=== PATIENT | female | born 1945 | race Caucasian/White ===

== ENCOUNTER 2016-11-29 09:46 | Day surgery (SDC) | payer MEDICARE ==
[~2016-11-29 09:46] MED LIST: ARMO90TA PO; CHOL50006; METF500T PO; OXYC1CAP PO
[2016-11-29] MEDS ORDERED: ASPI81CH CHEW (10:49)
[2016-11-29] MEDS ORDERED: CHOL20005 PO (10:49)
[2016-11-29] MEDS ORDERED: MAGN250T11 PO (10:49)
[2016-11-29] MEDS ORDERED: potassium PO (10:49)
[2016-11-29] MEDS ORDERED: PIOG15TA5 PO (10:49)
[2016-11-29] MEDS ORDERED: VITACAP7 PO (10:49)
[2016-11-29] MEDS ORDERED: PLAV75TA29 PO (10:49)
--- NOTE | 2016-11-29 13:46 | ECHRPT ---
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 Components FINDINGS LEFT VENTRICLE Normal left ventricular size and wall thickness. The left ventricular systolic function is normal wi th an estimated ejection fraction in the range of 60-65%. Left ventricular diastolic function parameters a re normal. RIGHT VENTRICLE Normal right ventricular size and systolic function. LEFT ATRIUM The left atrial size is normal. RIGHT ATRIUM The right atrial size is normal. ATRIAL APPENDAGES Normal left atrial appendage size with no evidence of thrombus formation. ATRIAL SEPTUM Normal atrial septal thickness without atrial level shunting by limited color doppler interrogation. AORTA The aortic root and proximal ascending aorta are normal in size on limited imaging. MITRAL VALVE Mild mitral valve regurgitation. Posterior leaflet appears mildly thickened and has irregular borde r with small regurgitation jet which appears to track through the valve. Findings suspicious for endocardit is. AORTIC VALVE Trileaflet aortic valve. No aortic valve stenosis or regurgitation. TRICUSPID VALVE The pulmonary valve is not well visualized. VESSELS The inferior vena cava is normal in size. PULMONARY VALVE The pulmonary valve is not well visualized. PERICADIUM No pericardial effusion. OTHER FINDINGS mild concentric plaque seen in descending thoracic aorta; ascending aorta appears to be wnl Yoel Wylie MD, FACC, FSCAI (Electronically Signed) Final Date:29 November 2016 13:46
--- NOTE | 2016-11-29 20:09 | EKG ---
Date Performed: 11/29/2016 Time Performed: 10:47:40 PTAGE: 71 years EKG: Sinus rhythm . Poor R wave progression - probable normal variant Low QRS voltages in precordial leads Borderline E CG PREVIOUS TRACING : 05/23/2013 14.35 Compared to prior tracing no significant change DOCTOR: Bri Murrell Interpretating Date/Time 11/29/2016 20:08:23
== END 2016-11-29 13:56 | disposition home or self-care (01) ==
LOC: HDOC 09:46 → HDIC 09:47 → HDOC 13:56
PROVIDERS: ATTEND Internal Medicine Interventional Cardiology
DX: I33.9 Acute and subacute endocarditis, unspecified (principal); I34.0 Nonrheumatic mitral (valve) insufficiency; I25.10 Atherosclerotic heart disease of native coronary artery without angina pectoris; E11.9 Type 2 diabetes mellitus without complications; E78.00 Pure hypercholesterolemia, unspecified; L40.50 Arthropathic psoriasis, unspecified; M06.80 Other specified rheumatoid arthritis, unspecified site; I73.9 Peripheral vascular disease, unspecified
CPT/HCPCS: 93005; 93312; 93320; 93325